=== PATIENT | female | born 1985 | race Caucasian/White ===

== ENCOUNTER 2017-12-23 19:21 | Emergency (ER) | payer OTHER ==
[2017-12-23 20:24] LABS: HEMATOCRIT 39.7 % (36.0-47.0); HEMOGLOBIN 13.4 g/dl (12.0-15.5); MEAN CORPUSCULAR HEMOGLOBIN 31.1 pg (27.0-33.0); MEAN CORPUSCULAR HGB CONC 33.8 g/dl (32.0-36.5); MEAN CORPUSCULAR VOLUME 92.1 fl (80.0-96.0); PLATELET COUNT, AUTOMATED 270 10^3/uL (150-450); RED BLOOD COUNT 4.31 10^6/uL (4.00-5.40); RED CELL DISTRIBUTION WIDTH 11.3 % (11.5-14.5); WHITE BLOOD COUNT 8.9 10^3/uL (4.0-10.0)
[2017-12-23] MEDS: hydroCHLOROthiazide 12.5 MG CAPSULE PO (20:32)
[2017-12-23 20:33] LABS: AMPHETAMINES LEVEL URINE NEGATIVE (NEGATIVE); BARBITURATES URINE NEGATIVE (NEGATIVE); BENZODIAZEPINES URINE NEGATIVE (NEGATIVE); CANNABINOIDS URINE NEGATIVE (NEGATIVE); COCAINE METABOLITE URINE NEGATIVE (NEGATIVE); METHADONE URINE NEGATIVE (NEGATIVE); OPIATES URINE NEGATIVE (NEGATIVE); PHENCYCLIDINE URINE NEGATIVE (NEGATIVE)
[2017-12-23 20:45] LABS: ALBUMIN 4.4 GM/DL (3.2-5.2); ALBUMIN/GLOBULIN RATIO 1.33 (1.00-1.93); ALKALINE PHOSPHATASE 61 U/L (45-117); ALT/SGPT 33 U/L (12-78); ANION GAP 6 MEQ/L (8-16); AST/SGOT 21 U/L (7-37); BILIRUBIN,DIRECT 0.2 MG/DL (0.0-0.2); BILIRUBIN,TOTAL 0.9 MG/DL (0.2-1.0); BLOOD UREA NITROGEN 9 MG/DL (7-18); CALCIUM LEVEL 9.2 MG/DL (8.5-10.1); CARBON DIOXIDE LEVEL 29 MEQ/L (21-32); CHLORIDE LEVEL 105 MEQ/L (98-107); CREATININE FOR GFR 0.67 MG/DL (0.55-1.30); ETHYL ALCOHOL (ETHANOL) < 0.003 % (0.000-0.010); GLOMERULAR FILTRATION RATE > 60.0 (>60); GLUCOSE, FASTING 103 MG/DL (70-100); POTASSIUM SERUM 4.2 MEQ/L (3.5-5.1); SALICYLATE LEVEL < 1.7 MG/DL (5.0-30.0); SODIUM LEVEL 140 MEQ/L (136-145); TOTAL PROTEIN 7.7 GM/DL (6.4-8.2)
[2017-12-23 20:46] LABS: ACETAMINOPHEN LEVEL < 2.0 UG/ML (10.0-30.0)
[2017-12-23 21:00] LABS: CONTROL LINE HCG INT CTR LINE PRESENT; HCG, SERUM QUALITATIVE NEGATIVE (NEGATIVE)
== END 2017-12-24 10:14 ==
LOC: M ED 12-24 10:14
DX: R45.851 Suicidal ideations (principal); F32.9 Major depressive disorder, single episode, unspecified; F99 Mental disorder, not otherwise specified; Z79.899 Other long term (current) drug therapy
CPT/HCPCS: G0480

== ENCOUNTER 2018-01-27 13:59 | Emergency (ER) | payer OTHER ==
[2018-01-27 15:20] LABS: D-DIMER QUANT 418.18 ng/ml (<500)
[2018-01-27] MEDS: KETOROLAC 60 MG/2 ML VIAL (J1885) IM (15:30)
== END 2018-01-27 16:18 | disposition home or self-care (01) ==
LOC: M ED 13:59
DX: R07.89 Other chest pain (principal); F32.9 Major depressive disorder, single episode, unspecified
CPT/HCPCS: J1885

== ENCOUNTER → 2018-05-07 | Outpatient (CLI) | payer OTHER ==
[~2018-05-07] MED LIST: BUSP10TA PO; CONRAY-43 43% 50ML VIAL (Q9960) As Ordered ONE; HYDR-643 PO; HYDR12.55 PO; NAPR-50 PO; PROHANCE 279.3MG/ML 5ML VIAL (A9576) As Ordered ONE
--- NOTE | 2018-05-07 13:49 | REP ---
Left hip arthrogram The procedure was performed under the direction supervision of Dr. Robles. The benefits and risks including but not limited to pain, infection, bleeding and anaphylaxis were explained to the patient and informed consent was obtained. The left femoral neck was localized using fluoroscopic guidance. Skin was prepped and draped in a sterile fashion. 1% lidocaine was used as a local anesthetic. Using fluoroscopic guidance a 22 gauge spinal needle was inserted and advanced to the femoral neck. 0.5 ml of Conray 43 was injected to verify placement. 11 ml of a solution containing 20 ml of sterile saline and 0.15 ml of ProHance was injected into the joint. The needle was removed and the patient was taken to MRI for postprocedural imaging. The patient tolerated the procedure well and there were no immediate complications. Less than 6 seconds of fluoro time was utilized for this procedure. Reviewed by AMAURY Pereira 05/07/2018 01:32 P Electronically Signed by Ritchie Robles MD 05/07/2018 01:41 P
--- NOTE | 2018-05-29 14:20 | REP ---
ARTHROGRAM, LEFT HIP: There is a history of left hip labrum repair. Comparison is made with prior studies of 04/01/2018 and 09/16/2017. There is delay in this report as we were awaiting these prior studies. TECHNIQUE: Coronal T1, STIR through the pelvis, post arthrogram axial T1 fat sat, T2 fat sat, coronal T1 fat sat, T2 fat sat, sagittal T1 fat sat, axial oblique T1 fat sat left hip. The visualized osseous structures demonstrate normal marrow signal with no edema or occult fracture. There is no avascular necrosis. There does appear to be a bone island in the right iliac bone medially. Once again, there is linear abnormal signal in the anterior superior aspect of the left hip labrum consistent with the previously identified tear. There is no other evidence of a labral tear. No para labral cyst is seen. There is a normal amount of joint fluid. The surrounding soft tissue structures of the left hip demonstrate no abnormal signal. There is no abnormal signal in the surrounding tendons or muscles. In the visualized portions of the pelvis, there is a mild amount of free fluid likely physiologic. There is a dominant follicle of the left ovary 2.2 cm in diameter. IMPRESSION: The previously noted tear of the anterior superior aspect of the left hip labrum is again seen. No new findings are seen involving the left hip. Electronically Signed by Fransico Andrade MD 05/29/2018 04:22 P
== END ==
LOC: M RADPRO 06:27
PROVIDERS: ATTEND Clinical Nurse Specialist Psychiatric/Mental Health, Adult
DX: M24.152 Other articular cartilage disorders, left hip (principal); M25.552 Pain in left hip; M25.352 Other instability, left hip
CPT/HCPCS: 27093; 73723; 77002; A9576; Q9960